=== PATIENT | female | born 1955 | race Caucasian/White ===

== ENCOUNTER → 2016-08-22 | Outpatient (CLI) | payer OTHER ==
[~2016-08-22] MED LIST: LEVO88TA PO; MULT-513 PO; MULT-663 PO; OMEG10007 PO
[2016-08-22 09:41] LABS: BLOOD UREA NITROGEN 18 mg/dl (7-18); BUN/CREATININE RATIO 19.6 (10-20); CALCIUM 9.2 mg/dl (8.5-10.1); CARBON DIOXIDE 35 mmol/L (21-32); CHLORIDE 107 mmol/L (98-107); CREATININE 0.92 mg/dl (0.60-1.20); GLUCOSE 91 mg/dl (70-99); POTASSIUM 3.9 mmol/L (3.5-5.1); SODIUM 141 mmol/L (136-145)
[2016-08-22 09:52] LABS: CHOLESTEROL 270 mg/dl (0-200); CHOLESTEROL/HDL RATIO 3.6; HDL CHOLESTEROL 75 mg/dl; LDL CHOLESTEROL CALCULATED 178 mg/dl; TRIGLYCERIDES 87 mg/dl (0-150); VERY LOW DENSITY LIPOPROT CALC 17 mg/dl
== END | disposition home or self-care (01) ==
LOC: C.LAB 07:33
PROVIDERS: ATTEND Internal Medicine
DX: E03.9 Hypothyroidism, unspecified (principal); E78.5 Hyperlipidemia, unspecified; Z13.1 Encounter for screening for diabetes mellitus

== ENCOUNTER → 2017-01-07 | Outpatient (CLI) | payer OTHER ==
[2017-01-07 09:50] LABS: BLOOD UREA NITROGEN 26 mg/dl (7-18); BUN/CREATININE RATIO 27.7 (10-20); CALCIUM 9.1 mg/dl (8.5-10.1); CARBON DIOXIDE 29 mmol/L (21-32); CHLORIDE 105 mmol/L (98-107); CHOLESTEROL 235 mg/dl (0-200); CHOLESTEROL/HDL RATIO 3.5; CREATININE 0.93 mg/dl (0.60-1.20); GLUCOSE 89 mg/dl (70-99); HDL CHOLESTEROL 68 mg/dl; LDL CHOLESTEROL CALCULATED 153 mg/dl; POTASSIUM 3.9 mmol/L (3.5-5.1); SODIUM 140 mmol/L (136-145); TRIGLYCERIDES 68 mg/dl (0-150); VERY LOW DENSITY LIPOPROT CALC 14 mg/dl
[2017-01-07 09:57] LABS: THYROID STIMULATING HORMONE 0.408 uIu/ml (0.300-4.500)
== END | disposition home or self-care (01) ==
LOC: C.LAB 07:28
PROVIDERS: ATTEND Internal Medicine
DX: E03.9 Hypothyroidism, unspecified (principal); E78.5 Hyperlipidemia, unspecified

== ENCOUNTER → 2017-07-03 | Outpatient (CLI) | payer OTHER ==
--- NOTE | 2017-07-03 14:02 | DIAGNOSTIC IMAGING REPORT ---
CHEST 2 VIEWS ROUTINE HISTORY: BRONCHIECTASIS,COUGH COMPARISON: Chest 05/23/2015. Chest CT 07/12/2015. FINDINGS: Linear opacity within the right middle lobe which is similar to the prior chest CT. No new focal lung consolidations. No pleural effusions. No pneumothorax. The heart is normal in size. IMPRESSION: 1. Stable linear opacity within the right midlung zone. Therefore, this favors scarring or atelectasis. 2. No new focal lung consolidations to suggest pneumonia. Electronically signed by: Azam Hurtado M.D. 07/03/2017 2:01 PM Dictated Date/Time: 07/03/2017 1:59 PM
== END | disposition home or self-care (01) ==
LOC: C.RAD1850 13:51
PROVIDERS: ATTEND Internal Medicine
DX: J47.9 Bronchiectasis, uncomplicated (principal); R05 Cough; R91.8 Other nonspecific abnormal finding of lung field

== ENCOUNTER → 2017-08-15 | Outpatient (CLI) | payer OTHER | END | disposition home or self-care (01) | LOC: C.LAB 17:32 | PROVIDERS: ATTEND Internal Medicine | DX: R05 Cough (principal) ==

== ENCOUNTER → 2017-08-19 | Outpatient (CLI) | payer OTHER ==
--- NOTE | 2017-08-19 14:55 | DIAGNOSTIC IMAGING REPORT ---
(CHEST) THORAX WITHOUT CT DOSE: 171.46 mGycm HISTORY: Bronchiectasis. Cough. Dyspnea. R91.[address] scan, lungJ47.9 [id number] [id number] M TECHNIQUE: Multiaxial CT images of the chest were performed without contrast. A dose lowering technique was utilized adhering to the principles of ALARA. COMPARISON: 07/12/2015 FINDINGS: Pulmonary apices are considered clear. Findings of mildly progressive bronchiectatic change involving the right middle lobe. Minimal interval atelectatic change anterior medial aspect of the lingula. Minimal right para esophageal atelectatic change right base. Minimal reticular nodular-type changes medial aspect left base. IMPRESSION: 1. Slightly progressive atelectatic/bronchiectatic change of the right middle lobe, medial aspect of the lingula, and lower right para esophageal region. 2. Interval minimal nodular-type changes medial left base. 3. Possibility of atypical inflammatory process must be considered. 4. No significant adenopathy. The above report was generated using voice recognition software. It may contain grammatical, syntax or spelling errors. Electronically signed by: Rod Kohli M.D. 08/19/2017 2:54 PM Dictated Date/Time: 08/19/2017 2:51 PM
== END | disposition home or self-care (01) ==
LOC: C.CTS 13:39
PROVIDERS: ATTEND Internal Medicine
DX: J98.11 Atelectasis (principal); R91.8 Other nonspecific abnormal finding of lung field; J47.9 Bronchiectasis, uncomplicated; R05 Cough

== ENCOUNTER → 2017-09-01 | Outpatient (CLI) | payer OTHER ==
[2017-09-01 17:38] LABS: BASO % 0.8 %; BASO ABS # 0.04 K/uL (0-0.2); EOS % 2.2 %; EOS ABS # 0.11 K/uL (0-0.5); HEMATOCRIT 38.5 % (37-47); HEMOGLOBIN 13.4 g/dL (12.0-16.0); IG# 0.01 K/uL (0.00-0.02); LYMPH % 40.3 %; LYMPH ABS # 2.03 K/uL (1.2-3.4); MEAN CELL VOLUME 89.3 fL (80-100); MEAN CORPUSCULAR HEMOGLOBIN 31.1 pg (25-34); MEAN CORPUSCULAR HGB CONC 34.8 g/dl (32-36); MEAN PLATELET VOLUME 9.5 fL (7.4-10.4); MONO % 10.7 %; MONO ABS # 0.54 K/uL (0.11-0.59); NEUT % 45.8 %; NEUT ABS # 2.31 K/uL (1.4-6.5); PLATELET COUNT 257 K/uL (130-400); RED CELL DISTRIBUTION WIDTH CV 13.1 % (11.5-14.5); WHITE BLOOD COUNT 5.04 K/uL (4.8-10.8)
[2017-09-01 17:45] LABS: PTT PATIENT 25.6 SECONDS (21.0-31.0)
[2017-09-01 18:07] LABS: BLOOD UREA NITROGEN 21 mg/dl (7-18); CALCIUM 9.2 mg/dl (8.5-10.1); CARBON DIOXIDE 31 mmol/L (21-32); CREATININE 0.94 mg/dl (0.60-1.20); GLUCOSE 88 mg/dl (70-99); POTASSIUM 3.8 mmol/L (3.5-5.1); SODIUM 139 mmol/L (136-145)
== END | disposition home or self-care (01) ==
LOC: C.LAB 17:09
PROVIDERS: ATTEND Physician Assistant
DX: J47.9 Bronchiectasis, uncomplicated (principal)

== ENCOUNTER → 2017-09-05 | Day surgery (SDC) | payer OTHER ==
[~2017-09-05] VITALS: Ht 160 cm; Wt 49.0 kg
[~2017-09-05] MED LIST changes: +CLR10 PO; +FENTANYL CITRATE INJ 50 MCG/1 ML 2 ML VIAL IV ONE; +LEVALBUTEROL 1.25MG/3ML NEB INH ONE; +LIDOCAINE 4% INH SOLN 4 ML BTL TOP ONE; +LIDOCAINE VISCOUS 2% 100ML TOP ONE; +MIDAZOLAM HCL 5 MG/ML 1 ML VIAL IV ONE; +OXYMETAZOLINE HCL 0.05% NA SPR 15 ML BTL ONE
--- NOTE | 2017-09-05 06:33 | Pre Sedation Assessment ---
Pre Sedation Assessment General Date of Sedation: September 05, 2017. Pre-Sedation Airway Assessment Smoking Status: Never Smoker Mallampati Classification: Class II ASA Classification: Class II Procedure Planning Contraindications for Sedation: None Current Medications Reviewed: Yes Notes The planned sedation has been discussed with the patient. Informed Consent was obtained. I have identified the patient, determined the appropriateness of sedation and have assessed the patient immediately prior to the procedure. All medicine(s) and interventions are by my order.
--- NOTE | 2017-09-05 06:33 | History & Physical Bridge Note ---
H&P Re-Evaluation Bridge Note: I have examined the patient, reviewed the History & Physical and in the interval since the performance of the History & Physical I have noted the following changes of clinical significance: No changes noted
[2017-09-05 10:14] VITALS: BP 124/74; PULSE 45; TEMP 36.7; O2SAT 99; Ht 160 cm; Wt 49.0 kg
--- NOTE | 2017-09-05 11:44 | [facility] Operative Report ---
Operative Report Operative Date September 05, 2017. Pre-Operative Diagnosis Bronchiectasis Post-Operative Diagnosis Bronchiectasis Procedure(s) Performed Bronchoscopy Surgeon Dr. Quintana Spanisher Surgeon(s) None Estimated Blood Loss 0 Findings Chronic Mucopurulent Bronchitis Specimens Right and left lung washings Complication(s) None Disposition I attest to the content of the Intraoperative Record and any orders documented therein. Any exceptions are noted below.
--- NOTE | 2017-09-05 11:46 | Discharge Instructions ---
Discharge Instructions Date of Service September 05, 2017. Admission Reason for Admission: Cough, Pulmonary Nodule Discharge Discharge Diagnosis / Problem: Chronic Mucopurulent Bronchitis Discharge Goals Goal(s): Diagnostic testing Activity Recommendations Activity Limitations: resume your previous activity Lifting Limitations: none Exercise/Sports Limitations: none May Resume Sexual Activity: when tolerated Shower/Bathe: no limitations Driving or Machine Use: no limitations none . Instructions / Follow-Up Instructions / Follow-Up ACTIVITY RECOMMENDATIONS: * Rest today, resume normal activity tomorrow. * Do not drive today. SPECIAL CARE INSTRUCTIONS: * Call your physician if you experience any chest or shoulder pain, fever, coughing, spitting up blood (more than 2 teaspoons) or excessive shortness of breath. * Remove dressing from IV site (where needle was placed into the vein) after 2 hours. Apply a warm, moist compress to site if irritation occurs. Call physician if site becomes red or painful to touch. FOLLOW UP VISIT: * Keep any scheduled doctor appointments. Current Hospital Diet Patient's current hospital diet: Discharge Diet Recommended Diet: Regular Diet Fluid Restriction: None Procedures Procedures Performed: Bronchoscopy Pending Studies Studies pending at discharge: no Medical Emergencies . Who to Call and When: Medical Emergencies: If at any time you feel your situation is an emergency, please call 911 immediately. . Non-Emergent Contact Non-Emergency issues call your: [place] Call Non-Emergent contact if: temperature is above 101 . . "Provider Documentation" section prepared by Jim Quintana. .
--- NOTE | 2017-09-05 11:46 | Post Sedation Assessment ---
Post Sedation Assessment General Date of Sedation September 05, 2017. Vital Signs: Vital Signs Past 12 Hours Date Time Temp Pulse Resp B/P (MAP) Pulse Ox O2 Delivery O2 Flow Rate FiO2 09/05/17 11:40 62 14 98/67 98 Mask 8 09/05/17 11:35 79 14 135/83 99 Mask 8 09/05/17 11:30 86 14 116/85 98 Mask 4 09/05/17 11:25 47 14 123/74 100 Mask 4 09/05/17 11:20 47 12 132/72 100 Mask 4 09/05/17 11:15 46 16 123/75 100 Room Air 09/05/17 10:14 36.7 45 16 124/74 (91) 99 Room Air Post Procedure Recovery Score Activity: (2) Moves 4 extremities * Respiration: (2) Deep breath/cough Circulation: (1) +/-20-49% PreAnes Hannah Consciousness: (1) Arouseable (by name) Oxygen Saturation: (1) O2 needed for >90% Post Anesthesia Score: 7 Discharge Sedation Level of Care: Phase I Post Sedation Plan On clinical assessment, the patient appears to have tolerated the sedation without complications. Patient is recovering as anticipated. Patient will continue to be monitored by nursing and may be discharged when sedation discharge criteria are met per below protocol. Upon Completions of procedure and additional 15 minutes continue every 5 minute vital signs and the P.A.R. score; then discharge to a Phase I or Fast Track to Phase II per the following guidelines: * Discharge Patient to appropriate Phase II area if PAR is 8 or greater or return to pre- procedure baseline. The post - procedure orders will be as directed. * If PAR score is less than 8 or not return to pre-procedure baseline then patient will follow Phase I monitoring till PAR is reached for Phase II. The Phase I may be done in procedure room or may call to secure a Phase I area. * If naloxone or flumazenil are used for reversal, hold in Phase I for an additional 60 -120 minutes before discharge to Phase II. Please call the Sedation Physician to re-evaluate and complete post-note for discharge to Phase II area. Do NOT discharge from procedure sedation or Phase 1 until post- sedation evaluation note is complete by procedure /sedation MD Sedation Discharge Instructions to be given to the patient at discharge to home.
[2017-09-05 11:55] VITALS: BP 107/73; PULSE 76; TEMP 36.7; O2SAT 99
--- NOTE | 2017-09-05 12:19 | OPERATIVE REPORT ---
DATE OF OPERATION: 09/05/2017 PROCEDURE: Fiberoptic bronchoscopy with bronchoalveolar lavage. INDICATIONS: Persistent cough refractory to outpatient therapy. ANESTHESIA PREOPERATIVELY: None. ANESTHESIA DURING PROCEDURE: 4 mg IV Versed, 50 mcg IV fentanyl, 20 mL 2% Xylocaine spray above and below the cords, 4% viscous Xylocaine intranasally. DESCRIPTION OF PROCEDURE: Fiberoptic bronchoscope was inserted into the left naris with minimal difficulty and passed to the level of the true vocal cords. The cords appeared to approximate normally with phonation without evidence of lesions or paralysis. The scope was passed through the cords into the trachea without difficulty and this was within normal limits. The brooklynn was sharp. The right main stem bronchus was explored initially and no endobronchial lesions were seen. The right tracheobronchial tree showed [id number] inflammatory mucosal change seen with mucus pitting. The right upper lobe, the apical posterior and anterior segments, bronchus intermedius, right middle lobe, the medial lateral segments and all basilar segments of right lower lobe were found to be free of endobronchial lesions. Each lobar and segmental bronchus was copiously lavaged with normosol and numerous mucous "plugs" were lavaged till clear from multiple segmental bronchi involving all 3 lobes. The right lower lobe predominated with the mucus plugging. The left tracheobronchial tree was explored and similar findings were noted with a left upper lobe, lingual subdivision and left lower lobe which were free of endobronchial lesions down to subsegmental bronchi, but numerous segmental bronchi were virtually occluded with mucus plugging and these were lavaged until clear. The aspirate from the right and left tracheobronchial tree was sent for appropriate studies. No brushings or biopsies were attempted. Fluoroscopy was not utilized. The procedure was terminated. Patient was given a nebulizer treatment of Xopenex 1.25 mg and transferred to the medical treatment unit hemodynamically stable with no signs of respiratory compromise. We will await microbiological and cytologic examination of the bronchial washings. I attest to the content of the Intraoperative Record and any orders documented therein. Any exception s are noted below.
[2017-09-05 12:25] VITALS: BP 104/69; PULSE 55; TEMP 36.6; O2SAT 98
[2017-09-05 12:52] VITALS: BP 120/73; PULSE 56; TEMP 36.5; O2SAT 98
[2017-09-05 13:56] VITALS: BP 102/63; PULSE 54; TEMP 36.8; O2SAT 97
[2017-09-05 14:05] VITALS: BP 108/58; PULSE 48; O2SAT 98
== END | disposition home or self-care (01) ==
LOC: C.ACU 09:40
PROVIDERS: ATTEND Internal Medicine Pulmonary Disease
DX: R05 Cough (principal); J47.9 Bronchiectasis, uncomplicated; R91.8 Other nonspecific abnormal finding of lung field; E78.5 Hyperlipidemia, unspecified; E03.9 Hypothyroidism, unspecified; Z87.01 Personal history of pneumonia (recurrent); Z82.49 Family history of ischemic heart disease and other diseases of the circulatory system; Z82.5 Family history of asthma and other chronic lower respiratory diseases; Z81.8 Family history of other mental and behavioral disorders; Z80.6 Family history of leukemia; Z80.3 Family history of malignant neoplasm of breast

== ENCOUNTER → 2017-11-18 | Outpatient (CLI) | payer OTHER ==
[~2017-11-18] MED LIST changes: -FENTANYL CITRATE INJ 50 MCG/1 ML 2 ML VIAL IV ONE; -LEVALBUTEROL 1.25MG/3ML NEB INH ONE; -LIDOCAINE 4% INH SOLN 4 ML BTL TOP ONE; -LIDOCAINE VISCOUS 2% 100ML TOP ONE; -MIDAZOLAM HCL 5 MG/ML 1 ML VIAL IV ONE; -OXYMETAZOLINE HCL 0.05% NA SPR 15 ML BTL ONE
--- NOTE | 2017-11-18 09:01 | DIAGNOSTIC IMAGING REPORT ---
CT OF THE CHEST WITHOUT IV CONTRAST CLINICAL HISTORY: Bronchiectasis. COMPARISON STUDY: Chest CT May 23, 2015 and August 19, 2017. Chest radiograph October 10, 2017. CT DOSE: 182.91 mGy.cm TECHNIQUE: Axial images of the chest were obtained without IV contrast. Images were reviewed in the axial, sagittal, and coronal planes. IV contrast was not administered for this examination. A dose lowering technique was utilized adhering to the principles of ALARA. FINDINGS: No enlarged axillary, mediastinal or hilar lymph nodes are present. The size of the heart is normal. There is no pericardial effusion. No pneumothorax or pleural effusion is noted. Mild bronchiectasis is most evident within the right middle lobe. Mild airspace opacity is noted. This is unchanged since chest CT of August 19, 2017. Mild opacity within the anterior segment of the right upper lobe has developed since prior CT. Mild lingular opacity has increased. A few scattered nodular airspace opacities are noted within the lungs. These include a new 7 mm subpleural opacity with within the left lower lobe shown on image 137 of 291. This is new since prior exam. Overall, bilateral lower lobe nodularity has improved since exam of August 19, 2017. There is no cavitation. Bony thorax and upper abdomen are unremarkable. IMPRESSION: Mild bronchiectasis with scattered multifocal waxing and waning airspace opacities. Slight progression of mild right upper lobe and lingular opacities since CT of August 2017 with interval improvement in bilateral lower lobe nodular opacities. Findings raise the possibility of an infectious process such as an atypical mycobacterial infection. Electronically signed by: Estuardo Zimmerman M.D. 11/18/2017 9:00 AM Dictated Date/Time: 11/18/2017 8:51 AM
== END | disposition home or self-care (01) ==
LOC: C.CTS 08:43
PROVIDERS: ATTEND Physician Assistant
DX: J47.9 Bronchiectasis, uncomplicated (principal); R91.8 Other nonspecific abnormal finding of lung field

== ENCOUNTER 2022-10-17 08:57 | Observation (INO) ==
[2022-10-17] MEDS ORDERED: SODIUM CHLORIDE 0.9% 1000ML 1,000 ML IV ONE (09:18)
[2022-10-17] MEDS ORDERED: dexAMETHasone**PF** 10 MG/ML VIAL IV ONE (09:33)
[2022-10-17] MEDS ORDERED: KETOROLAC TROMETHAMINE 15 MG/ML VIAL IV STA (09:34)
--- NOTE | 2022-10-17 09:37 | Emergency Department Note ---
Impression & Plan Pneumonia, Bronchiectasis, Acute pleurisy without pleural effusion ED Provider Note NAME: JOAN KRISHNAN AGE: 66 SEX: F ARRIVES VIA: Walk-In INFORMANT: Patient ED PROVIDER(S): Juan Alvarado MD CHIEF COMPLAINT: Chest pain PLAN: Disposition: Admit MEDICAL DECISION MAKING: The patient is a pleasant 66-year-old woman with a past medical history of bronchiectasis, history of allergic pulmonary aspergillosis, history of pulmonary Pseudomonas infection, who presents to the emergency department via walk-in, [place] by her for evaluation of central chest pain worse with inspiration in the setting of having recent air travel though with short trips to [place]. The patient reports feeling acute onset pain early this morning which concerned her. She denies any personal family history of blood clots. She denies any cough, congestion, fevers. She denies any GI or symptoms. On arrival the patient is uncomfortable but no acute distress, afebrile with BP 90-100s/50s stable vital signs. She appears clinically dry. Lungs are relatively clear. EKG without overt acute ischemia. Chest x-ray demonstrates bibasilar consolidation typical for pneumonia/aspiration pneumonitis better characterized on CT imaging. WBC, H/H and platelets within normal limits. Chemistry without metabolic acidosis. Lactic acid 1.6 and procalcitonin is undetectable. High-sensitivity troponin is undetectable. LFTs are unremarkable. D-dimer was elevated at 730. CTA of the chest was performed was negative for PE though with dense bilateral consolidations concerning for pneumonia. Upon reevaluation patient did report feeling some improvement after IV fluid hydration, dexamethasone, Toradol and DuoNeb. Case was discussed with [place] pulmonology on-call, Dr. Christina, who reviewed imaging. Appreciate consultation and recommendations. Recommends admission for IV antibiotics given patient's complicated pulmonary history. Recommendations reviewed with the patient and her and they did agree with plan for admission. Case was discussed with Dr. Poole, [facility] hospitalist, who will evaluate the patient for admission. Further management per admitting team. Triage Nursing notes reviewed and agree them. Prior/outside medical records reviewed Vital Signs: reviewed Differential diagnosis: Cardiac ischemia, aortic dissection, pulmonary embolism, pneumothorax, pneumonia, pericarditis, myocarditis, esophageal rupture, GERD, cholecystitis, pancreatitis, musculoskeletal, as well as other pathologies. ER treatment provided: See below. Diagnostics interpreted by me: ECG: Normal sinus rhythm, 63 bpm, no ectopy, no overt ST elevation or depression, QTc 431, QRS 80. Cardiac Monitoring: An order for continuous cardiac monitoring was placed and demonstrated Normal sinus rhythm, 63 bpm, no ectopy. Laboratory studies: See below Imaging studies: See below Consultation(s): Dr. Christina, [place] pulmonology. Dr. Poole, [facility] hospitalist. HPI: The patient is a pleasant 66-year-old woman with a past medical history of bronchiectasis, history of allergic pulmonary aspergillosis, history of pulmonary Pseudomonas infection, who presents to the emergency department via walk-in, [place] by her for evaluation of central chest pain worse with inspiration in the setting of having recent air travel though with short trips to [place]. The patient reports feeling acute onset pain early this morning which concerned her. She denies any personal family history of blood clots. She denies any cough, congestion, fevers. She denies any GI or symptoms. ROS: See above HPI for pertinent positives & negatives. A total of 10 systems reviewed and were otherwise negative. VITALS:See Below PHYSICAL EXAMINATION: GENERAL: Awake, alert, fatigued-appearing, in no distress HENT: Normocephalic, atraumatic. Oropharynx with dry mucous membranes and otherwise unremarkable. EYES: Normal conjunctiva. Sclera non-icteric. NECK: Supple. No nuchal rigidity. FROM. No JVD. RESPIRATORY: Clear to auscultation. CARDIAC: Regular rate, normal rhythm. Extremities warm and well perfused. Pulses equal. ABDOMEN: Soft, non-distended. No tenderness to palpation. No rebound or guarding. No masses. RECTAL: Deferred. MUSCULOSKELETAL: Chest examination reveals no tenderness. The back is symmetrical on inspection without obvious abnormality. There is no CVA tenderness to palpation. No joint edema. LOWER EXTREMITIES: Calves are equal size bilaterally and non-tender. No edema. No discoloration. NEURO: Normal sensorium. No sensory or motor deficits noted. SKIN: No rash or jaundice noted. Juan Alvarado MD Past Med/Surg History Medical History Abdominal discomfort Abnormal CT scan, chest Allergic rhinitis Chest pain Hyperlipidemia Hypothyroidism Mild persistent asthma Multiple pulmonary nodules Pain in left wrist Patient travels Pneumonia Pseudomonal pneumonia Tracheobronchitis due to Aspergillus Surgical History History of tonsillectomy History of tubal ligation History of vaginal surgery pelvic floor repair Family History Mother Asthma Coronary heart disease Depression Hypertension Myocardial infarction Sister Depression Father Diabetes Grandmother (Paternal) Breast cancer Grandfather (Paternal) Prostate cancer Denies family history of Ovarian cancer Social History Smoking Status: Never smoker Second Hand Exposure: No; Hx Alcohol Use: Yes Hx Substance Use: No Preferred Language: Azeri Communication Ability: Effective Visual Impairment: No Limitations Hearing Ability: Normal marital status: Current Living Situation: Spouse current occupational status: retired current occupation: RN Feels Safe at Home: Yes Childhood Exposure to Second-Hand Smoke: No Dental Care, Regularly: Yes Physical Activity Frequency: 5-6 Times per Week Seatbelt Use: always Sunscreen Use: Yes Allergies Allergies Allergy/AdvReac Type Severity Reaction Status Date / Time Penicillins Allergy Intermediate RASH Verified 10/09/22 08:22 Home Meds Home Medications Medication Instructions Recorded Confirmed multivitamin 1 cap PO DAILY 11/12/18 10/17/22 omega-3 fatty acids 1,000 mg 1,000 mg PO DAILY 11/12/18 10/17/22 capsule (Fish Oil Concentrate) fluticasone propionate 50 2 sprays intranasal DAILY PRN 05/12/19 10/17/22 mcg/actuation nasal Allergy Symptoms spray,suspension (Flonase Allergy Relief) glucosamine-chondroitin 250 mg-200 2 tab PO DAILY 05/12/19 10/17/22 mg tablet (Osteo Bi-Flex) loratadine 10 mg tablet (Claritin) 10 mg PO DAILY PRN Allergy Symptoms 05/12/19 10/17/22 ipratropium 0.5 mg-albuterol 3 mg 3 ml inhalation BID PRN shortness 07/05/20 10/17/22 (2.5 mg base)/3 mL nebulization of breath or wheezing soln sodium chloride 7 % for 4 ml inhalation BID other 10/17/22 10/17/22 nebulization Previous Rx's Medication Instructions Recorded nebulizer accessories #2 ea 11/13/20 nebulizers #1 ea 06/04/21 albuterol sulfate 90 mcg/actuation 2 puff inhalation Q6H PRN sob #3 11/20/21 aerosol inhaler (Ventolin HFA) Inhalers levothyroxine 88 mcg tablet 88 mcg PO DAILY #90 tabs 03/05/22 (Synthroid) fluticasone furoate 100 1 inh inhalation DAILY #3 Inhalers 06/17/22 mcg-vilanterol 25 mcg/dose inhalation powder (Breo Ellipta) pantoprazole 40 mg tablet,delayed 40 mg PO DAILY #30 tabs 09/02/22 release atorvastatin 10 mg tablet 10 mg PO DAILY #90 tabs 10/09/22 Results & Data (ED) Vital Signs Vital Signs - 24 hr 10/17/22 09:01 10/17/22 09:50 10/17/22 09:50 Temperature 36.8 C Temperature Source Oral Pulse Rate 63 53 L Pulse Rate [Apical] 51 L Pulse Rate from SpO2 Sensor Pulse Rhythm Regular Regular Pulse Rhythm [Apical] Pulse Strength Normal Pulse Strength [Apical] Respiratory Rate 32 H 21 17 Respiratory Effort / Characteristics Non-Labored Spontaneous Respiratory Depth Normal Respiratory Pattern Regular Regular Blood Pressure 118/64 Blood Pressure [Left Arm] 123/72 Blood Pressure Mean 82 Blood Pressure Mean [Left Arm] 89 Blood Pressure Position Lying Blood Pressure Position [Left Arm] Lying Pulse Oximetry 99 99 99 Oxygen Delivery Method Room Air Room Air Room Air Sepsis Recent Fever Within 48 Hours No Sepsis New/Unexplained Change in Mental Status No Sepsis Action Taken by Nursing No Action Required 10/17/22 10:05 10/17/22 10:01 10/17/22 10:10 Temperature Temperature Source Pulse Rate 55 L 54 L 54 L Pulse Rate [Apical] Pulse Rate from SpO2 Sensor 53 L 54 L Pulse Rhythm Pulse Rhythm [Apical] Pulse Strength Pulse Strength [Apical] Respiratory Rate 15 20 Respiratory Effort / Characteristics Respiratory Depth Respiratory Pattern Blood Pressure 123/67 Blood Pressure [Left Arm] Blood Pressure Mean 85 Blood Pressure Mean [Left Arm] Blood Pressure Position Blood Pressure Position [Left Arm] Pulse Oximetry 99 99 Oxygen Delivery Method Room Air Room Air Sepsis Recent Fever Within 48 Hours Sepsis New/Unexplained Change in Mental Status Sepsis Action Taken by Nursing 10/17/22 10:20 10/17/22 11:02 10/17/22 10:30 Temperature Temperature Source Pulse Rate 56 L 57 L Pulse Rate [Apical] 56 L Pulse Rate from SpO2 Sensor 57 L 58 L Pulse Rhythm Pulse Rhythm [Apical] Pulse Strength Pulse Strength [Apical] Respiratory Rate 20 20 17 Respiratory Effort / Characteristics Non-Labored Spontaneous Respiratory Depth Normal Respiratory Pattern Regular Blood Pressure 111/75 Blood Pressure [Left Arm] 111/75 Blood Pressure Mean 87 Blood Pressure Mean [Left Arm] 87 Blood Pressure Position Blood Pressure Position [Left Arm] Lying Pulse Oximetry 99 95 96 Oxygen Delivery Method Room Air Room Air Room Air Sepsis Recent Fever Within 48 Hours Sepsis New/Unexplained Change in Mental Status Sepsis Action Taken by Nursing 10/17/22 11:30 10/17/22 11:57 10/17/22 12:00 Temperature Temperature Source Pulse Rate 69 60 Pulse Rate [Apical] 63 Pulse Rate from SpO2 Sensor 62 Pulse Rhythm Pulse Rhythm [Apical] Regular Pulse Strength Pulse Strength [Apical] Normal Respiratory Rate 26 H 18 17 Respiratory Effort / Characteristics Non-Labored Spontaneous Respiratory Depth Normal Respiratory Pattern Regular Blood Pressure 128/77 112/63 Blood Pressure [Left Arm] 128/77 Blood Pressure Mean 94 79 Blood Pressure Mean [Left Arm] 94 Blood Pressure Position Blood Pressure Position [Left Arm] Pulse Oximetry 98 95 94 Oxygen Delivery Method Room Air Room Air Room Air Sepsis Recent Fever Within 48 Hours Sepsis New/Unexplained Change in Mental Status Sepsis Action Taken by Nursing 10/17/22 12:30 10/17/22 13:00 10/17/22 13:00 Temperature Temperature Source Pulse Rate 65 72 Pulse Rate [Apical] Pulse Rate from SpO2 Sensor 66 71 Pulse Rhythm Pulse Rhythm [Apical] Pulse Strength Pulse Strength [Apical] Respiratory Rate 21 20 Respiratory Effort / Characteristics Respiratory Depth Respiratory Pattern Blood Pressure 100/69 108/60 Blood Pressure [Left Arm] Blood Pressure Mean 79 76 Blood Pressure Mean [Left Arm] Blood Pressure Position Blood Pressure Position [Left Arm] Pulse Oximetry 98 95 Oxygen Delivery Method Room Air Sepsis Recent Fever Within 48 Hours Sepsis New/Unexplained Change in Mental Status Sepsis Action Taken by Nursing 10/17/22 13:10 10/17/22 13:50 10/17/22 13:20 Temperature Temperature Source Pulse Rate 79 80 81 Pulse Rate [Apical] Pulse Rate from SpO2 Sensor Pulse Rhythm Pulse Rhythm [Apical] Pulse Strength Pulse Strength [Apical] Respiratory Rate 18 23 Respiratory Effort / Characteristics Respiratory Depth Respiratory Pattern Blood Pressure Blood Pressure [Left Arm] Blood Pressure Mean Blood Pressure Mean [Left Arm] Blood Pressure Position Blood Pressure Position [Left Arm] Pulse Oximetry Oxygen Delivery Method Sepsis Recent Fever Within 48 Hours Sepsis New/Unexplained Change in Mental Status Sepsis Action Taken by Nursing 10/17/22 13:30 10/17/22 13:30 10/17/22 13:40 Temperature Temperature Source Pulse Rate 83 81 Pulse Rate [Apical] Pulse Rate from SpO2 Sensor 82 Pulse Rhythm Pulse Rhythm [Apical] Pulse Strength Pulse Strength [Apical] Respiratory Rate 20 22 Respiratory Effort / Characteristics Respiratory Depth Respiratory Pattern Blood Pressure 116/69 Blood Pressure [Left Arm] Blood Pressure Mean 84 Blood Pressure Mean [Left Arm] Blood Pressure Position Blood Pressure Position [Left Arm] Pulse Oximetry 94 Oxygen Delivery Method Sepsis Recent Fever Within 48 Hours Sepsis New/Unexplained Change in Mental Status Sepsis Action Taken by Nursing 10/17/22 13:50 10/17/22 14:00 10/17/22 14:00 Temperature Temperature Source Pulse Rate 83 77 Pulse Rate [Apical] Pulse Rate from SpO2 Sensor 82 81 Pulse Rhythm Pulse Rhythm [Apical] Pulse Strength Pulse Strength [Apical] Respiratory Rate 31 H 20 Respiratory Effort / Characteristics Respiratory Depth Respiratory Pattern Blood Pressure 93/42 L Blood Pressure [Left Arm] Blood Pressure Mean 59 Blood Pressure Mean [Left Arm] Blood Pressure Position Blood Pressure Position [Left Arm] Pulse Oximetry 95 94 Oxygen Delivery Method Sepsis Recent Fever Within 48 Hours Sepsis New/Unexplained Change in Mental Status Sepsis Action Taken by Nursing 10/17/22 14:10 10/17/22 14:20 10/17/22 14:30 Temperature Temperature Source Pulse Rate 70 73 Pulse Rate [Apical] Pulse Rate from SpO2 Sensor 70 73 Pulse Rhythm Pulse Rhythm [Apical] Pulse Strength Pulse Strength [Apical] Respiratory Rate 17 24 Respiratory Effort / Characteristics Respiratory Depth Respiratory Pattern Blood Pressure 94/59 L Blood Pressure [Left Arm] Blood Pressure Mean 70 Blood Pressure Mean [Left Arm] Blood Pressure Position Blood Pressure Position [Left Arm] Pulse Oximetry 93 96 Oxygen Delivery Method Sepsis Recent Fever Within 48 Hours Sepsis New/Unexplained Change in Mental Status Sepsis Action Taken by Nursing 10/17/22 14:30 10/17/22 14:40 10/17/22 14:50 Temperature Temperature Source Pulse Rate 74 73 72 Pulse Rate [Apical] Pulse Rate from SpO2 Sensor 74 73 72 Pulse Rhythm Pulse Rhythm [Apical] Pulse Strength Pulse Strength [Apical] Respiratory Rate 21 27 H 31 H Respiratory Effort / Characteristics Respiratory Depth Respiratory Pattern Blood Pressure Blood Pressure [Left Arm] Blood Pressure Mean Blood Pressure Mean [Left Arm] Blood Pressure Position Blood Pressure Position [Left Arm] Pulse Oximetry 94 94 93 Oxygen Delivery Method Sepsis Recent Fever Within 48 Hours Sepsis New/Unexplained Change in Mental Status Sepsis Action Taken by Nursing 10/17/22 15:00 10/17/22 15:19 10/17/22 15:30 Temperature Temperature Source Pulse Rate 67 65 62 Pulse Rate [Apical] Pulse Rate from SpO2 Sensor 67 66 62 Pulse Rhythm Pulse Rhythm [Apical] Pulse Strength Pulse Strength [Apical] Respiratory Rate 26 H 24 32 H Respiratory Effort / Characteristics Respiratory Depth Respiratory Pattern Blood Pressure 97/64 L 99/59 L 103/68 Blood Pressure [Left Arm] Blood Pressure Mean 75 72 79 Blood Pressure Mean [Left Arm] Blood Pressure Position Blood Pressure Position [Left Arm] Pulse Oximetry 93 95 95 Oxygen Delivery Method Room Air Room Air Sepsis Recent Fever Within 48 Hours Sepsis New/Unexplained Change in Mental Status Sepsis Action Taken by Nursing 10/17/22 16:00 Temperature Temperature Source Pulse Rate 59 L Pulse Rate [Apical] Pulse Rate from SpO2 Sensor 59 L Pulse Rhythm Pulse Rhythm [Apical] Pulse Strength Pulse Strength [Apical] Respiratory Rate 24 Respiratory Effort / Characteristics Respiratory Depth Respiratory Pattern Blood Pressure 106/63 Blood Pressure [Left Arm] Blood Pressure Mean 77 Blood Pressure Mean [Left Arm] Blood Pressure Position Blood Pressure Position [Left Arm] Pulse Oximetry 95 Oxygen Delivery Method Room Air Sepsis Recent Fever Within 48 Hours Sepsis New/Unexplained Change in Mental Status Sepsis Action Taken by Nursing Laboratory Data Attestation: I reviewed the patient's lab results. 10/17/22 09:18 10/17/22 09:18 Lab Results 10/17/22 10/17/22 10/17/22 Range/Units 09:18 09:18 09:18 WBC 8.21 (4.8-10.8) K/ul RBC 4.32 (4.20-5.40) M/uL Hgb 13.0 (12.0-16.0) g/dl Hct 38.1 (37.0-47.0) % MCV 88.2 (80.0-100.0) fL MCH 30.1 (25.0-34.0) pg MCHC 34.1 (32.0-36.0) g/dL RDW Std Deviation 40.9 (36.4-46.3) fL RDW Coeff of Zabrina 12.6 (11.5-14.5) % Plt Count 285 (130-400) K/uL MPV 9.6 (9.4-12.4) fL Immature Gran % (Auto) 0.1 % Neut % (Auto) 75.5 % Lymph % (Auto) 12.8 % Yell % (Auto) 9.4 % Eos % (Auto) 1.5 % Baso % (Auto) 0.7 % Neut # (Auto) 6.20 (1.40-6.50) K/uL Lymph # (Auto) 1.05 L (1.2-3.4) K/uL Yell # (Auto) 0.77 H (0.11-0.59) K/uL Eos # (Auto) 0.12 (0-0.50) K/uL Baso # (Auto) 0.06 (0-0.2) K/uL Immature Gran # (Auto) 0.01 (0.01-0.20) K/uL D-Dimer 730 H* (0-500) ug/L FEU Sodium 136 (136-145) mmol/L Potassium 3.4 L (3.5-5.1) mmol/L Chloride 101 (98-107) mmol/L Carbon Dioxide 27 (21-32) mmol/L Anion Gap 8 (3-11) BUN 14 (6-23) mg/dl Creatinine 0.86 (0.6-1.2) mg/dl Est Cr Clr Drug Dosing 48.3 ml/min Est GFR ( Amer) 80.5 ml/min Est GFR (Non-Af Amer) 69.4 ml/min BUN/Creatinine Ratio 16.3 (10-20) Glucose 102 H (70-99(Fasting)) mg/dl Lactate (0.4-2.0) mmol/L Calcium 9.2 (8.6-10.3) mg/dl Total Bilirubin 1.2 H (0.2-1.0) mg/dl AST 25 (13-39) U/L ALT 16 (7-52) U/L Alkaline Phosphatase 80 (34-104) U/L Troponin I High Sens < 2.3 (0-14) pg/ml Total Protein 7.6 (6.0-8.3) gm/dl Albumin 4.0 (3.4-5.0) gm/dl Globulin 3.6 (2.5-4.0) gm/dl Albumin/Globulin Ratio 1.1 (0.9-2) Lipase 33 (11-82) U/L Procalcitonin (0-0.5) ng/ml SARS-CoV-2, RNA, NAAT (NEGATIVE) 10/17/22 10/17/22 10/17/22 Range/Units 09:18 09:52 15:31 WBC (4.8-10.8) K/ul RBC (4.20-5.40) M/uL Hgb (12.0-16.0) g/dl Hct (37.0-47.0) % MCV (80.0-100.0) fL MCH (25.0-34.0) pg MCHC (32.0-36.0) g/dL RDW Std Deviation (36.4-46.3) fL RDW Coeff of Zabrina (11.5-14.5) % Plt Count (130-400) K/uL MPV (9.4-12.4) fL Immature Gran % (Auto) % Neut % (Auto) % Lymph % (Auto) % Yell % (Auto) % Eos % (Auto) % Baso % (Auto) % Neut # (Auto) (1.40-6.50) K/uL Lymph # (Auto) (1.2-3.4) K/uL Yell # (Auto) (0.11-0.59) K/uL Eos # (Auto) (0-0.50) K/uL Baso # (Auto) (0-0.2) K/uL Immature Gran # (Auto) (0.01-0.20) K/uL D-Dimer (0-500) ug/L FEU Sodium (136-145) mmol/L Potassium (3.5-5.1) mmol/L Chloride (98-107) mmol/L Carbon Dioxide (21-32) mmol/L Anion Gap (3-11) BUN (6-23) mg/dl Creatinine (0.6-1.2) mg/dl Est Cr Clr Drug Dosing ml/min Est GFR ( Amer) ml/min Est GFR (Non-Af Amer) ml/min BUN/Creatinine Ratio (10-20) Glucose (70-99(Fasting)) mg/dl Lactate 1.6 (0.4-2.0) mmol/L Calcium (8.6-10.3) mg/dl Total Bilirubin (0.2-1.0) mg/dl AST (13-39) U/L ALT (7-52) U/L Alkaline Phosphatase (34-104) U/L Troponin I High Sens (0-14) pg/ml Total Protein (6.0-8.3) gm/dl Albumin (3.4-5.0) gm/dl Globulin (2.5-4.0) gm/dl Albumin/Globulin Ratio (0.9-2) Lipase (11-82) U/L Procalcitonin < 0.05 (0-0.5) ng/ml SARS-CoV-2, RNA, NAAT NEGATIVE (NEGATIVE) Administered Medications Vancomycin HCl 1,000 mg/ (Sodium Chloride) 520 mls @ 200 mls/hr IV NOW ONE Stop: 10/17/22 18:35 Last Admin: 10/17/22 16:20 Dose: 200 mls/hr Documented By: MARINO Discontinued Medications Albuterol (Albut/Ipratrop 3mg/0.5mg Neb 3 Ml Vial) 3 ml NEB NOW STA; Protocol Stop: 10/17/22 12:11 Last Admin: 10/17/22 12:19 Dose: 3 ml Documented By: MARINO Dexamethasone Sodium Phosphate (DexamethasonePf 10 Mg/Ml Vial) 10 mg IV NOW ONE Stop: 10/17/22 09:34 Last Admin: 10/17/22 09:46 Dose: 10 mg Documented By: MARINO Sodium Chloride (Nss 1000ml) 1,000 mls @ 999 mls/hr IV .Q1H1M ONE Stop: 10/17/22 10:18 Last Infusion: 10/17/22 10:54 Dose: 0 mls/hr Documented By: Admin: 10/17/22 09:46 Dose: 999 mls/hr Documented By: MARINO Cefepime HCl 2,000 mg/ Syringe 20 mls @ 5 mls/min IV NOW STA Stop: 10/17/22 15:38 Last Admin: 10/17/22 16:19 Dose: 5 mls/min Documented By: MARINO Ioversol (Optiray 320 125ml) 120 ml IV ONCE ONE Stop: 10/17/22 11:12 Last Admin: 10/17/22 11:12 Dose: 120 ml Documented By: MARQUEZ Ketorolac Tromethamine (Ketorolac Tromethamine 15 Mg/Ml Vial) 15 mg IV NOW STA Stop: 10/17/22 09:35 Last Admin: 10/17/22 09:46 Dose: 15 mg Documented By: MARINO Imaging Data Radiologist's Impression: Chest X-Ray 10/17/22 09:18 SINGLE VIEW CHEST CLINICAL HISTORY: Atypical chest pain. FINDINGS: An AP, portable, upright chest radiograph is compared to study dated 06/28/2020 and correlated with chest CT dated 08/23/2020. The cardiomediastinal silhouette is unremarkable. Chronic interstitial thickening is similar to previous. There is bibasilar consolidation. No large pleural effusion or pneumothorax is seen. Foci of parenchymal scarring are seen throughout both lungs. The skeletal structures are osteopenic. The bony thorax is grossly intact. IMPRESSION: 1. Bibasilar consolidation is typical for pneumonia/aspiration pneumonitis. Clinical correlation will be required and radiographic follow-up to resolution is recommended. 2. Chronic parenchymal changes as above. 3. No large pleural effusion is identified. ACT 112: Negative or not required by law. Electronically signed by: Evan Hill M.D. 10/17/2022 9:52 AM Chest CTA 10/17/22 09:34 CHEST CTA for PULMONARY ARTERIES CT DOSE: 261.67 mGy.cm HISTORY: Shortness of breath. pleurisy, r/o PE TECHNIQUE: Multiaxial CT images of the chest were performed following the intravenous administration of contrast to evaluate the pulmonary arteries. Maximal intensity projection images were also obtained. A dose lowering technique was utilized adhering to the principles of ALARA. COMPARISON STUDY: Chest CT 08/23/2020. FINDINGS: Limited views of the upper abdomen demonstrate normal liver, spleen, and adrenal glands. There is a trace left pleural effusion. Normal caliber esophagus. No pericardial effusion. The heart is normal in size. A few mildly enlarged mediastinal and hilar lymph nodes which have increased in size. A dominant AP window lymph node on image 141 measures 2.5 x 1.2 cm. This may be reactive. Normal caliber thoracic aorta with no evidence for dissection. No filling defects within the pulmonary arteries to suggest a pulmonary embolus. No acute fractures identified. No pneumothorax. The central airways are patent. Mild emphysema. Scattered small clusters of tree-in-bud nodular opacities within the bilateral mid to lower lung zones. This is slightly progressed compared to the prior study. This is consistent with infectious bronchiolitis. There is a new focal nodular density within the right lower lobe on image 74 which measures 1 cm. Dense consolidation with air bronchograms and mild bronchiectasis seen within the base the right middle lobe and lingula. This has also progressed and is consistent with a pneumonia. IMPRESSION: 1. No evidence for a pulmonary embolus. 2. Trace left pleural effusion. 3. Scattered tree-in-bud nodular opacities consistent with an infectious bronchiolitis. 4. Dense consolidation within the right middle lobe and lingula which has progressed consistent with a pneumonia. 5. A 1 cm nodular density within the right lower lobe which is new from the prior study. This favors a focus of inflammatory/infectious change. However, [address] follow-up recommended to ensure stability/resolution. 6. Mild mediastinal and bilateral hilar lymphadenopathy which is likely reactive. This bears watching on future examinations. ACT 112: Positive. There are findings on this exam that require communication between the performing entity and the patient following Patient Test Result Information Act ([place] Act 112) guidelines. Electronically signed by: Azam Hurtado M.D. 10/17/2022 12:04 PM Discharge Plan Visit Data Chief Complaint: Chest Pain Stated Complaint: CHEST PAIN ED Provider: Juan Alvarado Discharge Problem: Pneumonia, Bronchiectasis, Acute pleurisy without pleural effusion Discharge Instructions Activity Restrictions/Additional Instructions: ---- CHEST CTA for PULMONARY ARTERIES CT DOSE: 261.67 mGy.cm HISTORY: Shortness of breath. pleurisy, r/o PE TECHNIQUE: Multiaxial CT images of the chest were performed following the intravenous administration of contrast to evaluate the pulmonary arteries. Maximal intensity projection images were also obtained. A dose lowering technique was utilized adhering to the principles of ALARA. COMPARISON STUDY: Chest CT 08/23/2020. FINDINGS: Limited views of the upper abdomen demonstrate normal liver, spleen, and adrenal glands. There is a trace left pleural effusion. Normal caliber esophagus. No pericardial effusion. The heart is normal in size. A few mildly enlarged mediastinal and hilar lymph nodes which have increased in size. A dominant AP window lymph node on image 141 measures 2.5 x 1.2 cm. This may be reactive. Normal caliber thoracic aorta with no evidence for dissection. No filling defects within the pulmonary arteries to suggest a pulmonary embolus. No acute fractures identified. No pneumothorax. The central airways are patent. Mild emphysema. Scattered small clusters of tree-in-bud nodular opacities within the bilateral mid to lower lung zones. This is slightly progressed compared to the prior study. This is consistent with infectious bronchiolitis. There is a new focal nodular density within the right lower lobe on image 74 which measures 1 cm. Dense consolidation with air bronchograms and mild bronchiectasis seen within the base the right middle lobe and lingula. This has also progressed and is consistent with a pneumonia. IMPRESSION: 1. No evidence for a pulmonary embolus. 2. Trace left pleural effusion. 3. Scattered tree-in-bud nodular opacities consistent with an infectious bronchiolitis. 4. Dense consolidation within the right middle lobe and lingula which has progressed consistent with a pneumonia. 5. A 1 cm nodular density within the right lower lobe which is new from the prior study. This favors a focus of inflammatory/infectious change. However, [address] follow-up recommended to ensure stability/resolution. 6. Mild mediastinal and bilateral hilar lymphadenopathy which is likely reactive. This bears watching on future examinations. Forms Stand Alone Forms: My [facility] [place] Prescriptions Prescriptions: No Action (DME) nebulizer accessories Kit See Rx Instructions .Route Qty: 2 5RF Rx Instructions: nebulizer kits 2 per month albuterol sulfate [Ventolin HFA] 90 mcg/actuation HFA aerosol inhaler 2 puff INH Q6H PRN (Reason: sob) Qty: 3 1RF Breo Ellipta 100-25 mcg/dose blister with device 1 inh inhalation DAILY Qty: 3 2RF (DME) nebulizers Misc See Rx Instructions .Route Qty: 1 0RF Rx Instructions: As directed pantoprazole 40 mg tablet,delayed release (DR/EC) 40 mg PO DAILY Qty: 30 1RF atorvastatin 10 mg tablet 10 mg PO DAILY Qty: 90 3RF omega-3 fatty acids [Fish Oil Concentrate] 1,000 mg capsule 1,000 mg PO DAILY multivitamin capsule 1 cap PO DAILY fluticasone propionate [Flonase Allergy Relief] 50 mcg/actuation spray,suspension 2 sprays INTNAS DAILY PRN (Reason: Allergy Symptoms) glucosamine-chondroitin [Osteo Bi-Flex] 250-200 mg tablet 2 tab PO DAILY loratadine [Claritin] 10 mg tablet 10 mg PO DAILY PRN (Reason: Allergy Symptoms) ipratropium-albuterol 0.5 mg-3 mg(2.5 mg base)/3 mL solution for nebulization 3 ml INH BID PRN (Reason: shortness of breath or wheezing) levothyroxine [Synthroid] 88 mcg tablet 88 mcg PO DAILY Qty: 90 3RF sodium chloride 7 % solution for nebulization 4 ml inhalation BID Referrals Referrals: Cathi Pace MD [Primary Care Provider] -
--- NOTE | 2022-10-17 09:53 | XRay Report ---
SINGLE VIEW CHEST CLINICAL HISTORY: Atypical chest pain. FINDINGS: An AP, portable, upright chest radiograph is compared to study dated 06/28/2020 and correlat ed with chest CT dated 08/23/2020. The cardiomediastinal silhouette is unremarkable. Chronic interstit ial thickening is similar to previous. There is bibasilar consolidation. No large pleural effusion or pneumothorax is seen. Foci of parenchymal scarring are seen throughout both lungs. The skeletal stru ctures are osteopenic. The bony thorax is grossly intact. IMPRESSION: 1. Bibasilar consolidation is typical for pneumonia/aspiration pneumonitis. Clinical correlation will be required and radiographic follow-up to resolution is recommended. 2. Chronic parenchymal changes as above. 3. No large pleural effusion is identified. ACT 112: Negative or not required by law. Electronically signed by: Evan Hill M.D. 10/17/2022 9:52 AM
[2022-10-17 09:56] LABS: Basophils # (auto) 0.06 K/uL (0-0.2); Basophils % (auto) 0.7 %; Eosinophils # (auto) 0.12 K/uL (0-0.50); Eosinophils % (auto) 1.5 %; Hematocrit (blood only) 38.1 % (37.0-47.0); Immature Granulocytes # (auto) 0.01 K/uL (0.01-0.20); Immature Granulocytes % (auto) 0.1 %; Lymphocytes # (auto) 1.05 K/uL (1.2-3.4); Lymphocytes % (auto) 12.8 %; Mean Corpuscular Hemoglobin 30.1 pg (25.0-34.0); Mean Corpuscular Hgb Conc 34.1 g/dL (32.0-36.0); Mean Corpuscular Volume 88.2 fL (80.0-100.0); Mean Platelet Volume 9.6 fL (9.4-12.4); Monocytes # (auto) 0.77 K/uL (0.11-0.59); Monocytes % (auto) 9.4 %; Neutrophils % (auto) 75.5 %; Platelet Count 285 K/uL (130-400); RDW Coefficient of Variation 12.6 % (11.5-14.5); RDW Standard Deviation 40.9 fL (36.4-46.3); Red Blood Count 4.32 M/uL (4.20-5.40); White Blood Count 8.21 K/ul (4.8-10.8)
[2022-10-17 10:10] LABS: Alanine Aminotransferase 16 U/L (7-52); Albumin Globulin Ratio 1.1 (0.9-2); Alkaline Phosphatase 80 U/L (34-104); Anion Gap 8 (3-11); Aspartate Aminotransferase 25 U/L (13-39); BUN Creatinine Ratio 16.3 (10-20); Bilirubin,Total 1.2 mg/dl (0.2-1.0); Blood Urea Nitrogen 14 mg/dl (6-23); Calcium 9.2 mg/dl (8.6-10.3); Carbon Dioxide 27 mmol/L (21-32); Chloride 101 mmol/L (98-107); Creatinine Clr Calc Pharmacy 48.3 ml/min; Est GFR (African American) 80.5 ml/min; Est GFR (Non-African American) 69.4 ml/min; Globulin 3.6 gm/dl (2.5-4.0); Glucose 102 mg/dl (70-99(Fasting)); Lipase 33 U/L (11-82); Potassium 3.4 mmol/L (3.5-5.1); Sodium 136 mmol/L (136-145); Total Protein 7.6 gm/dl (6.0-8.3)
[2022-10-17 10:16] LABS: Troponin I High Sensitivity < 2.3 pg/ml (0-14)
[2022-10-17 10:49] LABS: D Dimer 730 ug/L FEU (0-500)
[2022-10-17] MEDS ORDERED: OPTIRAY 320 125ml IV ONE (11:11)
--- NOTE | 2022-10-17 12:05 | CT Scan Report ---
CHEST CTA for PULMONARY ARTERIES CT DOSE: 261.67 mGy.cm HISTORY: Shortness of breath. pleurisy, r/o PE TECHNIQUE: Multiaxial CT images of the chest were performed following the intravenous administration of contrast to evaluate the pulmonary arteries. Maximal intensity projection images were also obtaine d. A dose lowering technique was utilized adhering to the principles of ALARA. COMPARISON STUDY: Chest CT 08/23/2020. FINDINGS: Limited views of the upper abdomen demonstrate normal liver, spleen, and adrenal glands. Th ere is a trace left pleural effusion. Normal caliber esophagus. No pericardial effusion. The heart is normal in size. A few mildly enlarged mediastinal and hilar lymph nodes which have increased in size . A dominant AP window lymph node on image 141 measures 2.5 x 1.2 cm. This may be reactive. Normal ca liber thoracic aorta with no evidence for dissection. No filling defects within the pulmonary arterie s to suggest a pulmonary embolus. No acute fractures identified. No pneumothorax. The central airways are patent. Mild emphysema. Scattered small clusters of tree-in-bud nodular opacities within the melissa ateral mid to lower lung zones. This is slightly progressed compared to the prior study. This is cons istent with infectious bronchiolitis. There is a new focal nodular density within the right lower lob e on image 74 which measures 1 cm. Dense consolidation with air bronchograms and mild bronchiectasis seen within the base the right middle lobe and lingula. This has also progressed and is consistent wi th a pneumonia. IMPRESSION: 1. No evidence for a pulmonary embolus. 2. Trace left pleural effusion. 3. Scattered tree-in-bud nodular opacities consistent with an infectious bronchiolitis. 4. Dense consolidation within the right middle lobe and lingula which has progressed consistent with a pneumonia. 5. A 1 cm nodular density within the right lower lobe which is new from the prior study. This favors a focus of inflammatory/infectious change. However, [address] follow-up recommended to ensure stability/resolution. 6. Mild mediastinal and bilateral hilar lymphadenopathy which is likely reactive. This bears watching on future examinations. ACT 112: Positive. There are findings on this exam that require communication between the performing entity and the patient following Patient Test Result Information Act ([place] Act 112) guidelines. Electronically signed by: Azam Hurtado M.D. 10/17/2022 12:04 PM
[2022-10-17] MEDS ORDERED: ALBUT/IPRATROP 3MG/0.5MG NEB 3 ML VIAL NEB STA (12:10)
[2022-10-17] MEDS ORDERED: levoFLOXacin/D5W 750 MG/150 ML BAG IV STA (14:20)
--- NOTE | 2022-10-17 14:32 | History & Physical Report ---
Date of Service October 17, 2022 Assessment & Plan (1) Pneumonia: Plan: RML PNA History of bronchopulmonary aspergillosis history of Pseudomonas CTA: No evidence of PE. Scattered tree-in-bud nodular opacities consistent with infectious bronchiolitis Right middle lobe with dense consolidation consistent with pneumonia, progressed compared to 08/23/2020 comparison new 1 cm nodular density within the right lower lobe. 6-month follow-up chest CT recommended. Likely reactive mediastinal and bilateral hilar lymphadenopathy CXR: Bibasilar consolidation consistent with pneumonia/aspiration pneumonitis. Patient is with normal oxygen saturation on room air Given Levaquin in the ER. Discussed with pulmonary, will admit on cefepime/vancomycin. May discontinue vancomycin if MRSA nare is negative. MRSA nares ordered and pending Past history of aspergillus on [facility] 2019. Procalcitonin is normal Beta D glucan last checked 2018, normal at that time Breo, nebulized saline, chest therapy continued - COVID negative Hypotension Patient reports her blood pressure is normally in the low 100s, 97/64 on admission No LORETO/transaminitis/troponin rise suggestive of endorgan ischemia Lactate is pending No history of heart failure, echo is pending. We will add 1 ask 500 cc bolus and then defer additional to clinical reevaluation. Chest pain - EKG: Normal sinus rhythm, QTc 431. No ST segment or T wave changes History of coronary calcification No leukocytosis D-dimer 730, No PE on CTA Potassium 3.4, repleted. Sodium normal High-sensitivity troponin undetectable. Suspect with her pain being inspiratory driven and pleuritic with no chest pain at rest and excellent exercise tolerance that this is unlikely to be of cardiac origin. Troponin is undetectable. Does have history of coronary calcification, echo is pending History of mild persistent asthma, bronchiectasis Last PFTs 04/2021: FVC 3.06 (111% predicted), FEV1 2.36 (110% predicted), FEV1/FVC ratio 77, normal study Follows with pulmonology Breo daily Vest therapy twice daily Hypertonic saline twice daily No wheezing on admission, patient has not needed albuterol recently No hypoxia on admission GERD Continue Protonix Hypothyroidism Continue Synthroid daily Hyperlipidemia Continue lovastatin 10 mg daily DVT prophylaxis: Lovenox Diet: Regular Disposition: Medical telemetry for chest pain r/o, if chest pain eval is negative may downgrade to med surge CODE STATUS: Full code (2) Bronchiectasis: (3) Toenail fungus: (4) GERD (gastroesophageal reflux disease): (5) Hypothyroidism: (6) Mild persistent asthma: (7) Hyperlipidemia: History of Present Illness Primary Care Provider: Cathi Pace MD Cindy is a 66-year-old female with a past medical history of bronchiectasis, pulmonary aspergillosis, Pseudomonas infection, GERD, hypothyroidism, and hyperlipidemia who presents with approximately 5 days of inspiratory chest pain and shortness of breath and who is found to have a dense right middle lobe consolidation consistent with pneumonia. Due to her medical comorbidities and history she is recommended for inpatient treatment and observation. Cindy reports that she was traveling to [place] by flight last through Friday. On Friday she began to notice some pain with deep breathing and shortness of breath. She notes that she is normally a runner and tried running on Friday, but this caused her to have sharp chest pain in her chest. She feels that this chest pain is not caused by exertion, but rather by having to breathe more and take deep breaths. She denies any history of heart attack/heart disease. She has no chest pain at rest, but is able to induce pain by taking a deep breath. No history of DVT/PE. She is a long history of bronchiectasis on Breo, twice daily nebulized saline, and chest physiotherapy. His past history of aspergillosis and Pseudomonas. She reports she has not been on antibiotics recently. No nausea, vomiting, diarrhea, constipation. She has not had lightheadedness/dizziness/syncope/presyncope. She has had no leg swelling. She is allergic to penicillin as an adult with a rash but without lip or tongue swelling. No other medication allergies. Medical History: Reviewed Medications: Reviewed Surgical History: Reviewed Family history: Reviewed Allergies: Reviewed Social History: No tobacco or vape use. Rare social ETOH. Code Status: Full Code Allergies Allergy/AdvReac Type Severity Reaction Status Date / Time Penicillins Allergy Intermediate RASH Verified 10/09/22 08:22 Home Medications Medication Instructions Recorded Confirmed Type multivitamin 1 cap PO DAILY 11/12/18 10/17/22 History omega-3 fatty acids 1,000 mg 1,000 mg PO DAILY 11/12/18 10/17/22 History capsule (Fish Oil Concentrate) fluticasone propionate 50 2 sprays intranasal DAILY PRN 05/12/19 10/17/22 History mcg/actuation nasal Allergy Symptoms spray,suspension (Flonase Allergy Relief) glucosamine-chondroitin 250 mg-200 2 tab PO DAILY 05/12/19 10/17/22 History mg tablet (Osteo Bi-Flex) loratadine 10 mg tablet (Claritin) 10 mg PO DAILY PRN Allergy Symptoms 05/12/19 10/17/22 History ipratropium 0.5 mg-albuterol 3 mg 3 ml inhalation BID PRN shortness 07/05/20 10/17/22 History (2.5 mg base)/3 mL nebulization of breath or wheezing soln nebulizer accessories #2 ea 11/13/20 10/09/22 Rx nebulizers #1 ea 06/04/21 10/09/22 Rx albuterol sulfate 90 mcg/actuation 2 puff inhalation Q6H PRN sob #3 11/20/21 10/17/22 Rx aerosol inhaler (Ventolin HFA) Inhalers levothyroxine 88 mcg tablet 88 mcg PO DAILY #90 tabs 03/05/22 10/17/22 Rx (Synthroid) fluticasone furoate 100 1 inh inhalation DAILY #3 Inhalers 06/17/22 10/17/22 Rx mcg-vilanterol 25 mcg/dose inhalation powder (Breo Ellipta) pantoprazole 40 mg tablet,delayed 40 mg PO DAILY #30 tabs 09/02/22 10/17/22 Rx release atorvastatin 10 mg tablet 10 mg PO DAILY #90 tabs 10/09/22 10/17/22 Rx sodium chloride 7 % for 4 ml inhalation BID other 10/17/22 10/17/22 History nebulization Past Med/Surg History Medical History (Updated 10/17/22 @ 15:27 by Luca Poole MD) Abdominal discomfort Abnormal CT scan, chest Allergic rhinitis Chest pain Hyperlipidemia Hypothyroidism Mild persistent asthma Multiple pulmonary nodules Pain in left wrist Patient travels Pneumonia Pseudomonal pneumonia Tracheobronchitis due to Aspergillus Surgical History History of tonsillectomy History of tubal ligation History of vaginal surgery pelvic floor repair Family History Mother Asthma Coronary heart disease Depression Hypertension Myocardial infarction Sister Depression Father Diabetes Grandmother (Paternal) Breast cancer Grandfather (Paternal) Prostate cancer Denies family history of Ovarian cancer Social History Smoking Status: Never smoker Second Hand Exposure: No; Hx Alcohol Use: Yes Hx Substance Use: No Preferred Language: Tajik Communication Ability: Effective Visual Impairment: No Limitations Hearing Ability: Normal marital status: Current Living Situation: Spouse current occupational status: retired current occupation: RN Feels Safe at Home: Yes Childhood Exposure to Second-Hand Smoke: No Dental Care, Regularly: Yes Physical Activity Frequency: 5-6 Times per Week Seatbelt Use: always Sunscreen Use: Yes Review of Systems Review of Systems: All systems reviewed & are unremarkable except as noted in HPI & below Physical Exam Physical Exam: General: A&Ox3. NAD. Cooperative. HEENT: Atraumatic, normocephalic. Vision/hearing grossly intact. Pulls equal and reactive to light. Pulm: CTAB A&P. -wheezes, -rales, -rhonchi. Symmetrical chest rise. No increased work of breathing. No respiratory distress. Cardiac: RRR, -mrg. Radial pulses intact and symmetrical. Abdominal: Nontender, nondistended, soft. BS present. Extremities: Warm, dry. Moves all extremities equally. Sensation to soft touch in hands and feet intact bilaterally. Results & Data Results & Data Vital Signs (Past 12 Hours) Vital Signs Temp Pulse Pulse Resp BP BP Pulse Ox 10/17/22 13:50 80 10/17/22 13:10 79 18 10/17/22 13:00 72 20 95 10/17/22 13:00 108/60 10/17/22 12:30 65 21 100/69 98 10/17/22 12:00 60 17 112/63 94 10/17/22 11:57 63 18 128/77 95 10/17/22 11:30 69 26 H 128/77 98 10/17/22 10:30 57 L 17 111/75 96 10/17/22 11:02 56 L 20 111/75 95 10/17/22 10:20 56 L 20 99 10/17/22 10:10 54 L 20 99 10/17/22 10:01 54 L 15 123/67 99 10/17/22 10:05 55 L 10/17/22 09:50 53 L 17 99 10/17/22 09:50 51 L 21 123/72 99 10/17/22 09:01 36.8 C 63 32 H 118/64 99 O2 Del Method 10/17/22 13:50 10/17/22 13:10 10/17/22 13:00 10/17/22 13:00 10/17/22 12:30 Room Air 10/17/22 12:00 Room Air 10/17/22 11:57 Room Air 10/17/22 11:30 Room Air 10/17/22 10:30 Room Air 10/17/22 11:02 Room Air 10/17/22 10:20 Room Air 10/17/22 10:10 Room Air 10/17/22 10:01 Room Air 10/17/22 10:05 10/17/22 09:50 Room Air 10/17/22 09:50 Room Air 10/17/22 09:01 Room Air PG Care Time/CCT Total # of Minutes Spent Total Time Spent with Patient: Total time spent is greater than 50% in coordination of care (as documented) at patient's floor/unit and/or counseling patient: Coding Level of Care Code 89619 INT INP/OBS CARE 375MIN Diagnoses Pneumonia J18.9 Bronchiectasis J47.9 Toenail fungus B35.1 GERD (gastroesophageal reflux disease) K21.9 Hypothyroidism E03.9 Mild persistent asthma J45.30 Hyperlipidemia E78.5
[2022-10-17] MEDS ORDERED: VANCOMYCIN CONSULT ACTIVE PRN ×2 (15:30→17:06)
[2022-10-17] MEDS ORDERED: CEFEPIME 2,000 MG in SYRINGE 0 ML IV STA (15:35)
--- NOTE | 2022-10-17 15:38 | Pulmonary Consultation ---
Date of Consultation October 17, 2022 Assessment & Plan (1) Acute pleurisy without pleural effusion: (2) Pneumonia: (3) Abnormal CT scan, chest: (4) Bronchiectasis: Plan CTA chest 10/17/2022 personally reviewed: Dense consolidative process appreciated in the inferior lobe of the lingula Bronchiectasis of the right middle lobe Multiple nodularity with tree-in-bud opacities appreciated bilateral lower lobes especially on the right side Significant mediastinal lymphadenopathy station 4L Comparing to the CT chest done 08/23/2020, patient has chronic right middle lobe bronchiectasis, tree-in-bud opacities bilateral lower lobes are also waxing and waning. Left lingular infiltrate is new --Multilobar pneumonia with pleuritic chest pain Procalcitonin negative SARS Cov-2 negative --History of asthma On Breo at home Absolute eosinophil count 330 on 02/13/2022 PFT 05/14/2021: No obstructive lung dysfunction, insignificant bronchodilator response FVC 3.06 L 111%, FEV1 2.36 L 110%, FEV1/FVC 77%, RV 125%, TLC 112%, RV/TLC 112%, DLCO 82% -- Chronic right middle lobe bronchiectasis Likely lady [place] disease Continue with upper airway cough clearing technique Follow-up AFB sputum Plan: Continue with antipseudomonal coverage along with vancomycin till we have nasal MRSA back. Pleuritic chest pain is most likely from dense consolidative process. Continue with incentive spirometry and mucolytic along with flutter valve Case was discussed with Dr. Poole Please note the above document was generated using voice recognition software. It may contain grammatical, syntax or spelling errors.Any formal questions or concerns about the content, text or information contained within the body of this dictation should be directly addressed to the provider for clarification. History of Present Illness History of Present Illness 66-year-old female presented to the hospital with complaints of chest pain Past medical history: GERD, hypothyroidism, dyslipidemia, asthma Patient follows up with Dr. Swift as an outpatient. He saw her last 12/12. Notes personally reviewed At the time of examination patient was resting comfortably. She did complain of chest pain on taking deep breaths She recently traveled to [place] by flight. No recent sick contacts. Brings up clear phlegm. No hemoptysis She has been using hypertonic saline nebulized along with chest vest on a regular basis Uses Breo on a daily basis Denies any fever or chills No dysuria, no diarrhea No headache, no blurry vision Social history: Lifetime non-smoker, used to work as an RN Pets: Has a cat at home. Used to have a dog, no birds or poultry nearby History of asthma in mother who was a non-smoker History of lung cancer in paternal grandfather used to smoke pipe Allergies Allergy/AdvReac Type Severity Reaction Status Date / Time Penicillins Allergy Intermediate RASH Verified 10/09/22 08:22 Home Medications Medication Instructions Recorded Confirmed Type multivitamin 1 cap PO DAILY 11/12/18 10/17/22 History omega-3 fatty acids 1,000 mg 1,000 mg PO DAILY 11/12/18 10/17/22 History capsule (Fish Oil Concentrate) fluticasone propionate 50 2 sprays intranasal DAILY PRN 05/12/19 10/17/22 History mcg/actuation nasal Allergy Symptoms spray,suspension (Flonase Allergy Relief) glucosamine-chondroitin 250 mg-200 2 tab PO DAILY 05/12/19 10/17/22 History mg tablet (Osteo Bi-Flex) loratadine 10 mg tablet (Claritin) 10 mg PO DAILY PRN Allergy Symptoms 05/12/19 10/17/22 History ipratropium 0.5 mg-albuterol 3 mg 3 ml inhalation BID PRN shortness 07/05/20 10/17/22 History (2.5 mg base)/3 mL nebulization of breath or wheezing soln nebulizer accessories #2 ea 11/13/20 10/09/22 Rx nebulizers #1 ea 06/04/21 10/09/22 Rx albuterol sulfate 90 mcg/actuation 2 puff inhalation Q6H PRN sob #3 11/20/21 10/17/22 Rx aerosol inhaler (Ventolin HFA) Inhalers levothyroxine 88 mcg tablet 88 mcg PO DAILY #90 tabs 03/05/22 10/17/22 Rx (Synthroid) fluticasone furoate 100 1 inh inhalation DAILY #3 Inhalers 06/17/22 10/17/22 Rx mcg-vilanterol 25 mcg/dose inhalation powder (Breo Ellipta) pantoprazole 40 mg tablet,delayed 40 mg PO DAILY #30 tabs 09/02/22 10/17/22 Rx release atorvastatin 10 mg tablet 10 mg PO DAILY #90 tabs 10/09/22 10/17/22 Rx sodium chloride 7 % for 4 ml inhalation BID other 10/17/22 10/17/22 History nebulization Patient History Medical History (Updated 10/18/22 @ 10:26 by Karlee Christina MD, [facility]) Abdominal discomfort Abnormal CT scan, chest Allergic rhinitis Chest pain Hyperlipidemia Hypothyroidism Mild persistent asthma Multiple pulmonary nodules Pain in left wrist Patient travels Pneumonia Pseudomonal pneumonia Tracheobronchitis due to Aspergillus Surgical History History of tonsillectomy History of tubal ligation History of vaginal surgery pelvic floor repair Family History Mother Asthma Coronary heart disease Depression Hypertension Myocardial infarction Sister Depression Father Diabetes Grandmother (Paternal) Breast cancer Grandfather (Paternal) Prostate cancer Denies family history of Ovarian cancer Social History Smoking Status: Never smoker Second Hand Exposure: No; Do You Dip or Chew Tobacco: No; Hx Alcohol Use: Yes Hx Substance Use: No Preferred Language: Malaysian Communication Ability: Effective Visual Impairment: No Limitations Hearing Ability: Normal Sec Reporting Consultant Required: No Beliefs That Will Affect Care: None marital status: Current Living Situation: Spouse current occupational status: retired current occupation: RN Other Information That Helps Us Care for You: No Feels Safe at Home: Yes Safety Concerns: Feels Safe At This Time Childhood Exposure to Second-Hand Smoke: No Dental Care, Regularly: Yes Physical Activity Frequency: 5-6 Times per Week Seatbelt Use: always Sunscreen Use: Yes Assistive Devices: None Review of Systems Review of Systems: All systems reviewed & are unremarkable except as noted in HPI & below Physical Exam Physical Exam: Constitutional: No acute distress HEENT: EOMI, PERRLA Respiratory system: Good air entry bilaterally, no wheeze, no rhonchi, no cr ackles CVS: S1-S2 positive, no murmurs or gallops Abdomen: Soft, nontender, nondistended, positive bowel sounds x4 Extremities: +2 pulses bilaterally radialis/ dorsalis pedis, no cyanosis, no edema Neuro: Awake alert oriented x3 Psych: Normal mood and affect G/U: No Gutierrez Skin: no rashes, warm and dry Lymphatic: no cervical or axillary lymphadenopathy Results & Data Results & Data Vital Signs (Past 12 Hours) Vital Signs Temp Pulse Pulse Resp BP BP Pulse Ox 10/17/22 15:00 67 26 H 97/64 L 93 10/17/22 14:50 72 31 H 93 10/17/22 14:40 73 27 H 94 10/17/22 14:30 74 21 94 10/17/22 14:30 94/59 L 10/17/22 14:20 73 24 96 10/17/22 14:10 70 17 93 10/17/22 14:00 77 20 94 10/17/22 14:00 93/42 L 10/17/22 13:50 83 31 H 95 10/17/22 13:40 81 22 94 10/17/22 13:30 83 20 10/17/22 13:30 116/69 10/17/22 13:20 81 23 10/17/22 13:50 80 10/17/22 13:10 79 18 10/17/22 13:00 72 20 95 10/17/22 13:00 108/60 10/17/22 12:30 65 21 100/69 98 10/17/22 12:00 60 17 112/63 94 10/17/22 11:57 63 18 128/77 95 10/17/22 11:30 69 26 H 128/77 98 10/17/22 10:30 57 L 17 111/75 96 10/17/22 11:02 56 L 20 111/75 95 10/17/22 10:20 56 L 20 99 10/17/22 10:10 54 L 20 99 10/17/22 10:01 54 L 15 123/67 99 10/17/22 10:05 55 L 10/17/22 09:50 53 L 17 99 10/17/22 09:50 51 L 21 123/72 99 10/17/22 09:01 36.8 C 63 32 H 118/64 99 O2 Del Method 10/17/22 15:00 10/17/22 14:50 10/17/22 14:40 10/17/22 14:30 10/17/22 14:30 10/17/22 14:20 10/17/22 14:10 10/17/22 14:00 10/17/22 14:00 10/17/22 13:50 10/17/22 13:40 10/17/22 13:30 10/17/22 13:30 10/17/22 13:20 10/17/22 13:50 10/17/22 13:10 10/17/22 13:00 10/17/22 13:00 10/17/22 12:30 Room Air 10/17/22 12:00 Room Air 10/17/22 11:57 Room Air 10/17/22 11:30 Room Air 10/17/22 10:30 Room Air 10/17/22 11:02 Room Air 10/17/22 10:20 Room Air 10/17/22 10:10 Room Air 10/17/22 10:01 Room Air 10/17/22 10:05 10/17/22 09:50 Room Air 10/17/22 09:50 Room Air 10/17/22 09:01 Room Air Laboratory Results 10/17/22 09:18 10/17/22 09:18 PG Care Time/CCT Total # of Minutes Spent Total Time Spent with Patient: Total time spent is greater than 50% in coordination of care (as documented) at patient's floor/unit and/or counseling patient: Coding Level of Care Code 19666 INT INP/OBS CARE 375MIN Diagnoses Acute pleurisy without pleural effusion R09.[address] scan, chest R93.89 Bronchiectasis J47.9
[2022-10-17] MEDS ORDERED: VANCOMYCIN HCL 1,000 MG in SODIUM CHLORIDE 0.9% 500 ML IV ONE ×2 (16:00→17:06)
[2022-10-17] MEDS ORDERED: ALBUT/IPRATROP 3MG/0.5MG NEB 3 ML VIAL INH PRN (17:06)
[2022-10-17] MEDS ORDERED: LORATADINE 10 MG TAB PO PRN (17:06)
[2022-10-17] MEDS ORDERED: ACETAMINOPHEN 325 MG TAB PO PRN (17:06)
[2022-10-17] MEDS ORDERED: CEFEPIME 2,000 MG in SYRINGE 0 ML IV SCH (17:06)
[2022-10-17] MEDS ORDERED: ALBUTEROL HFA 8 GM INHALER INH PRN (17:06)
[2022-10-17] MEDS ORDERED: ENOXAPARIN INJ 40 MG/0.4 ML SYR SQ SCH (17:30)
[2022-10-17] MEDS: SODIUM CHLOR 7% 4 ML NEB INH SCH (19:47)
[2022-10-17] MEDS: guaiFENesin 600 MG TABCR PO SCH (20:14)
[2022-10-17 22:03] LABS: Influenza A PCR (Fusion) Negative (Negative); Influenza B PCR (Fusion) Negative (Negative); RSV PCR (Fusion) Negative (Negative)
[2022-10-18] MEDS ORDERED: CEFEPIME 2,000 MG in SYRINGE 0 ML IV SCH (04:00)
[2022-10-18] MEDS ORDERED: LEVOTHYROXINE SODIUM 88 MCG TABLET PO SCH (06:30)
[2022-10-18] MEDS: SODIUM CHLOR 7% 4 ML NEB INH SCH (07:11)
[2022-10-18 07:43] LABS: Basophils # (auto) 0.01 K/uL (0-0.2); Basophils % (auto) 0.1 %; Hematocrit (blood only) 35.2 % (37.0-47.0); Immature Granulocytes # (auto) 0.04 K/uL (0.01-0.20); Immature Granulocytes % (auto) 0.4 %; Lymphocytes # (auto) 1.05 K/uL (1.2-3.4); Lymphocytes % (auto) 9.7 %; Mean Corpuscular Hemoglobin 30.5 pg (25.0-34.0); Mean Corpuscular Hgb Conc 34.1 g/dL (32.0-36.0); Mean Corpuscular Volume 89.3 fL (80.0-100.0); Mean Platelet Volume 9.6 fL (9.4-12.4); Monocytes # (auto) 0.83 K/uL (0.11-0.59); Monocytes % (auto) 7.7 %; Neutrophils # (auto) 8.91 K/uL (1.40-6.50); Neutrophils % (auto) 82.1 %; Platelet Count 268 K/uL (130-400); RDW Coefficient of Variation 12.7 % (11.5-14.5); RDW Standard Deviation 41.9 fL (36.4-46.3); Red Blood Count 3.94 M/uL (4.20-5.40); White Blood Count 10.84 K/ul (4.8-10.8)
[2022-10-18 08:13] LABS: BUN Creatinine Ratio 25.7 (10-20); Calcium 8.7 mg/dl (8.6-10.3); Creatinine Clr Calc Pharmacy 55.2 ml/min; Est GFR (African American) 96.5 ml/min; Est GFR (Non-African American) 83.2 ml/min; Potassium 4.2 mmol/L (3.5-5.1)
[2022-10-18] MEDS: guaiFENesin 600 MG TABCR PO SCH (08:18)
[2022-10-18] MEDS ORDERED: PANTOprazole 40 MG TAB PO SCH (09:00)
[2022-10-18] MEDS ORDERED: ATORVASTATIN 10 MG TAB PO SCH (09:00)
[2022-10-18] MEDS ORDERED: FLUTICASONE/VILANTEROL 100/25MCG 14 PUFFS/INHALER INH SCH (09:00)
[2022-10-18] MEDS ORDERED: MULTIVITAMIN TAB PO SCH (09:00)
--- NOTE | 2022-10-18 10:36 | Pulmonology Progress Note ---
Date of Service October 18, 2022 Assessment & Plan (1) Acute pleurisy without pleural effusion: (2) Pneumonia: (3) Abnormal CT scan, chest: (4) Bronchiectasis: Plan CTA chest 10/17/2022 personally reviewed: Dense consolidative process appreciated in the inferior lobe of the lingula Bronchiectasis of the right middle lobe Multiple nodularity with tree-in-bud opacities appreciated bilateral lower lobes especially on the right side Significant mediastinal lymphadenopathy station 4L Comparing to the CT chest done 08/23/2020, patient has chronic right middle lobe bronchiectasis, tree-in-bud opacities bilateral lower lobes are also waxing and waning. Left lingular infiltrate is new --Multilobar pneumonia with pleuritic chest pain Procalcitonin negative SARS Cov-2 negative Nasal MRSA negative --History of asthma On Breo at home Absolute eosinophil count 330 on 02/13/2022 PFT 05/14/2021: No obstructive lung dysfunction, insignificant bronchodilator response FVC 3.06 L 111%, FEV1 2.36 L 110%, FEV1/FVC 77%, RV 125%, TLC 112%, RV/TLC 112%, DLCO 82% -- Chronic right middle lobe bronchiectasis Likely lady [place] disease Continue with upper airway cough clearing technique with hypertonic saline and chest vest Follow-up AFB sputum --History of lung cancer in paternal grandfather who used to be a pipe smoker Plan: Follow-up AFB sputum Would recommend antibiotics like levofloxacin to be given for total 10 days, did warn the patient that it might cause tendinitis so keep an eye on any tendon pain and avoid strenuous exercise while on antibiotics. Repeat CT chest in 6 weeks to confirm resolution of pneumonia. If there is persistent opacity then she might need bronchoscopy Continue with incentive spirometry and mucolytic along with flutter valve Case was discussed with Dr. Guzman Please note the above document was generated using voice recognition software. It may contain grammatical, syntax or spelling errors.Any formal questions or concerns about the content, text or information contained within the body of this dictation should be directly addressed to the provider for clarification. Admission and Anticipated Discharge Date Admission Date: October 17, 2022 Subjective Patient seen and examined at bedside. No acute distress, no adverse events overnight She states that she is feeling better compared to when she came to the hospital She does have very minimal chest pain on deep inspiration but is not that bad Denies any headache, no nausea vomiting Fair appetite Asking if she could go home today Review of Systems Review of Systems: All systems reviewed & are unremarkable except as noted in Subjective Physical Exam Physical Exam: Constitutional: No acute distress HEENT: EOMI, PERRLA Respiratory system: Good air entry bilaterally, no wheeze, no rhonchi, no crackles CVS: S1-S2 positive, no murmurs or gallops Abdomen: Soft, nontender, nondistended, positive bowel sounds x4 Extremities: +2 pulses bilaterally radialis/ dorsalis pedis, no cyanosis, no edema Neuro: Awake alert oriented x3 Psych: Normal mood and affect G/U: No Gutierrez Skin: no rashes, warm and dry Lymphatic: no cervical or axillary lymphadenopathy Results & Data Results & Data Vital Signs (Past 12 Hours) Vital Signs Temp Pulse Resp BP Pulse Ox O2 Del Method 10/18/22 08:27 Room Air 10/18/22 07:13 60 22 99 Room Air 10/18/22 07:07 36.6 C 60 18 110/61 99 Room Air Laboratory Results 10/18/22 06:38 10/18/22 06:38 PG Care Time/CCT Total # of Minutes Spent Total Time Spent with Patient: Total time spent is greater than 50% in coordination of care (as documented) at patient's floor/unit and/or counseling patient: Coding Level of Care Code 52658 SUB INP/OBS CARE 2/35MIN Diagnoses Acute pleurisy without pleural effusion R09.[address] scan, chest R93.89 Bronchiectasis J47.9
--- NOTE | 2022-10-18 13:23 | Discharge Summary ---
Discharge Summary Date of Service October 18, 2022 Notes For Next Care Provider Follow up CT Chest in 6 weeks Medication Changes From Visit Levaquin 750mg po daily x 9 more days Admission HPI Per Admitting Provider Cindy is a 66-year-old female with a past medical history of bronchiectasis, pulmonary aspergillosis, Pseudomonas infection, GERD, hypothyroidism, and hyperlipidemia who presents with approximately 5 days of inspiratory chest pain and shortness of breath and who is found to have a dense right middle lobe consolidation consistent with pneumonia. Due to her medical comorbidities and history she is recommended for inpatient treatment and observation. Cindy reports that she was traveling to [place] by flight last through Friday. On Friday she began to notice some pain with deep breathing and shortness of breath. She notes that she is normally a runner and tried running on Friday, but this caused her to have sharp chest pain in her chest. She feels that this chest pain is not caused by exertion, but rather by having to breathe more and take deep breaths. She denies any history of heart attack/heart disease. She has no chest pain at rest, but is able to induce pain by taking a deep breath. No history of DVT/PE. She is a long history of bronchiectasis on Breo, twice daily nebulized saline, and chest physiotherapy. His past history of aspergillosis and Pseudomonas. She reports she has not been on antibiotics recently. No nausea, vomiting, diarrhea, constipation. She has not had lightheadedness/dizziness/syncope/presyncope. She has had no leg swelling. She is allergic to penicillin as an adult with a rash but without lip or tongue swelling. No other medication allergies. Medical History: Reviewed Medications: Reviewed Surgical History: Reviewed Family history: Reviewed Allergies: Reviewed Social History: No tobacco or vape use. Rare social ETOH. Code Status: Full Code Principal Dx & Hospital Course #1 = Principal Diagnosis (1) Pneumonia: Multifocal PNA History of bronchopulmonary aspergillosis history of Pseudomonas CTA: No evidence of PE. Scattered tree-in-bud nodular opacities consistent with infectious bronchiolitis Right middle lobe with dense consolidation consistent with pneumonia, progressed compared to 08/23/2020 comparison new 1 cm nodular density within the right lower lobe. 6-month follow-up chest CT recommended. Likely reactive mediastinal and bilateral hilar lymphadenopathy CXR: Bibasilar consolidation consistent with pneumonia/aspiration pneumonitis. Also with left lingular PNA Patient is with normal oxygen saturation on room air -was teated with 1 dose of IV Vanco and then dcd as MRSA swab negative Was teated with IV Cefepime x 1 day Chest pain from pleurisy much improved, still some SAN on discharge -continue Levaquin x 9 more days -continue flutter valve, ICS, and hypertonic saline nebs at home Past history of aspergillus on [facility] wash 2018. Procalcitonin is normal Beta D glucan last checked 2018, normal at that time - COVID negative -f/u Chest CT in 6 weeks with PULM-if not resolved, may need bronch -f/u Sputum, BCxs and AFB after discharge Chest pain - EKG: Normal sinus rhythm, QTc 431. No ST segment or T wave changes History of coronary calcification No leukocytosis D-dimer 730, No PE on CTA Potassium 3.4, repleted. Sodium normal High-sensitivity troponin undetectable. Suspect with her pain being inspiratory driven and pleuritic with no chest pain at rest and excellent exercise tolerance that this is unlikely to be of cardiac origin. Troponin is undetectable. Does have history of coronary calcification, echo is pending at time of discharge but normal exam, runs daily, very active, doubt there will be any abnormalities on ECHO-will call with results if abnormal History of mild persistent asthma, bronchiectasis Last PFTs 04/2021: FVC 3.06 (111% predicted), FEV1 2.36 (110% predicted), FEV1/FVC ratio 77, normal study Follows with pulmonology Breo daily Vest therapy twice daily Hypertonic saline twice daily No wheezing on admission, patient has not needed albuterol recently No hypoxia GERD Continue Protonix Hypothyroidism Continue Synthroid daily Hyperlipidemia Continue lovastatin 10 mg daily DVT prophylaxis: Lovenox Diet: Regular Disposition: stable for dc to home CODE STATUS: Full code (2) Bronchiectasis: (3) Toenail fungus: (4) GERD (gastroesophageal reflux disease): (5) Hypothyroidism: (6) Mild persistent asthma: (7) Hyperlipidemia: Discharge Exam Constitutional WD/WN, vitals as above Respiratory normal respiratory effort, lungs clear to auscultation Cardiovascular RRR, no murmur, no edema Gastrointestinal (Abdomen) normal bowel sounds, soft, nontender, no hepatosplenomegaly Psychiatric A+Ox3, euthymic affect Updated Medication List Medication Instructions Recorded Confirmed Type multivitamin 1 cap PO DAILY 11/12/18 10/17/22 History omega-3 fatty acids 1,000 mg 1,000 mg PO DAILY 11/12/18 10/17/22 History capsule (Fish Oil Concentrate) fluticasone propionate 50 2 sprays intranasal DAILY PRN 05/12/19 10/17/22 History mcg/actuation nasal Allergy Symptoms spray,suspension (Flonase Allergy Relief) glucosamine-chondroitin 250 mg-200 2 tab PO DAILY 05/12/19 10/17/22 History mg tablet (Osteo Bi-Flex) loratadine 10 mg tablet (Claritin) 10 mg PO DAILY PRN Allergy Symptoms 05/12/19 10/17/22 History ipratropium 0.5 mg-albuterol 3 mg 3 ml inhalation BID PRN shortness 07/05/20 10/17/22 History (2.5 mg base)/3 mL nebulization of breath or wheezing soln nebulizer accessories #2 ea 11/13/20 10/09/22 Rx nebulizers #1 ea 06/04/21 10/09/22 Rx albuterol sulfate 90 mcg/actuation 2 puff inhalation Q6H PRN sob #3 11/20/21 10/17/22 Rx aerosol inhaler (Ventolin HFA) Inhalers levothyroxine 88 mcg tablet 88 mcg PO DAILY #90 tabs 03/05/22 10/17/22 Rx (Synthroid) fluticasone furoate 100 1 inh inhalation DAILY #3 Inhalers 06/17/22 10/17/22 Rx mcg-vilanterol 25 mcg/dose inhalation powder (Breo Ellipta) pantoprazole 40 mg tablet,delayed 40 mg PO DAILY #30 tabs 09/02/22 10/17/22 Rx release atorvastatin 10 mg tablet 10 mg PO DAILY #90 tabs 10/09/22 10/17/22 Rx sodium chloride 7 % for 4 ml inhalation BID other 10/17/22 10/17/22 History nebulization levofloxacin 750 mg tablet 750 mg PO DAILY #9 tabs 10/18/22 Rx Hospital Stay Data Consultations 10/17/22 14:20 ED Decision to Admit Stat 10/17/22 17:06 Consult Pulmonology Routine Diagnostic Imagining Performed 10/17/22 09:34 CT angio chest PE protocol Stat ECHO Pending Results Patient Have Any Pending Studies at Discharge: Yes (AFB smear, Sputum and blood cultures) Discharge Instructions Given to Patient (Per Discharging Provider) Please finish out 9 more days of the antibiotic called levofloxacin. If a bacteria grows out of your sputum culture that is resistant to this antibiotic, you will be contacted. Please follow up with Pulmonology as scheduled for you. You will need to have a repeat CT scan of your chest in 6 weeks. Your echocardiogram result was pending at the time of discharge also. You will be contacted with this result if there are any major abnormalities. Total Time Total Time Spent Total Time Spent (In Minutes): 35 min Total Time Includes: Examination of the Patient, Discharge Planning, Medication Reconciliation and Communication With Other Providers (Pulmonology) Coding Level of Care Code 54258 INP/OBS DISCH >30 MIN Diagnoses Pneumonia J18.9 Bronchiectasis J47.9 Toenail fungus B35.1 GERD (gastroesophageal reflux disease) K21.9 Hypothyroidism E03.9 Mild persistent asthma J45.30 Hyperlipidemia E78.5
--- NOTE | 2022-10-18 16:14 | XCELERA ---
[id number]
--- NOTE | 2022-10-19 06:02 | Electrocardiogram Report ---
Test Reason : Blood Pressure : / mmHG Vent. Rate : 063 BPM Atrial Rate : 063 BPM P-R Int : 140 ms QRS Dur : 080 ms QT Int : 422 ms P-R-T Axes : 037 054 049 degrees QTc Int : 431 ms Normal sinus rhythm Possible Left atrial enlargement Borderline ECG When compared with ECG of 25-MAY-2015 07:11, No significant change was found Confirmed by Erasmo Choudhury ([id number]) on 10/19/2022 6:02:07 AM Referred By: Confirmed By:Erasmo Choudhury
== END 2022-10-18 14:15 | disposition home or self-care (01) ==
LOC: ED 08:57 → 3W 08:57 → SUATTDRO 15:07 → 3W 16:51
DX: J47.9 Bronchiectasis, uncomplicated; E78.5 Hyperlipidemia, unspecified; J45.30 Mild persistent asthma, uncomplicated; K21.9 Gastro-esophageal reflux disease without esophagitis; Z88.0 Allergy status to penicillin; Z79.899 Other long term (current) drug therapy; E03.9 Hypothyroidism, unspecified; B35.1 Tinea unguium; Z86.19 Personal history of other infectious and parasitic diseases; Z79.890 Hormone replacement therapy; J18.9 Pneumonia, unspecified organism; Z20.822 Contact with and (suspected) exposure to COVID-19